=== PATIENT | female | born 1975 | race Caucasian/White ===

== ENCOUNTER 2017-09-21 09:28 | Day surgery (SDC) | payer BC ==
[2017-09-16 15:55] VITALS: BMI 25.6
[2017-09-21 12:05] VITALS: TEMP 97.6
[2017-09-21 12:27] VITALS: BP 97/58; PULSE 62
== END 2017-09-21 12:30 | disposition home or self-care (01) ==
LOC: FASU-ENDO 09:28
PROVIDERS: ATTEND Internal Medicine Gastroenterology
PROC: 0DJD8ZZ Inspection of Lower Intestinal Tract, Via Natural or Artificial Opening Endoscopic (ICD-10-PCS; principal; 2017-09-21 11:29)
DX: Z12.11 Encounter for screening for malignant neoplasm of colon (principal)
CPT/HCPCS: 84703

== ENCOUNTER 2023-10-12 09:19 | Day surgery (SDC) | payer OTHER ==
[2023-10-07 16:01] VITALS: BMI 26.5
[2023-10-12 09:36] VITALS: RESP 20
[2023-10-12 10:44] VITALS: TEMP 97.2
[2023-10-12 11:33] VITALS: BP 110/70; PULSE 61
== END 2023-10-12 11:20 | disposition home or self-care (01) ==
LOC: FASU-ENDO 09:19
PROVIDERS: ATTEND Internal Medicine Gastroenterology
PROC: 0DJD8ZZ Inspection of Lower Intestinal Tract, Via Natural or Artificial Opening Endoscopic (ICD-10-PCS; principal; 2023-10-12 10:09)
DX: Z12.11 Encounter for screening for malignant neoplasm of colon (principal); Z83.719 Family history of colon polyps, unspecified; Z80.0 Family history of malignant neoplasm of digestive organs
CPT/HCPCS: 81025